=== PATIENT | female | born 2000 | race African-American/Black ===

== ENCOUNTER 2021-01-22 11:57 | Inpatient (IN) | payer SELFPAY ==
[2021-01-22 11:00] VITALS: BMI 28.8
[2021-01-22 14:00] VITALS: BP 132/90; PULSE 89; RESP 16; TEMP 36.9; O2SAT 98
[2021-01-22] MEDS: hyDROXYzine 25 mg Capsule 50 MG PO (14:36)
[2021-01-22] MEDS: nicotine 21 mg Patch 1 PATCH TRANSDERMA (14:48)
[2021-01-22] MEDS: trazodone 50 mg Tablet PO (20:55)
[2021-01-22] MEDS: nicotine 2 mg Gum BUCCAL (21:42)
[2021-01-22 22:00] VITALS: BP 132/83; PULSE 77; RESP 16; TEMP 36.8; O2SAT 98
[2021-01-23 06:00] VITALS: BP 105/65; PULSE 60; RESP 17; TEMP 36.9; O2SAT 99
[2021-01-23] MEDS: multivitamin therapeutic Tablet 1 TAB PO (09:08)
[2021-01-23] MEDS: folic acid 1 mg Tablet PO (09:08)
[2021-01-23] MEDS: thiamine 100 mg Tablet PO (09:08)
[2021-01-23] MEDS: hyDROXYzine 25 mg Capsule 50 MG PO ×2 (09:10→20:57)
[2021-01-23] MEDS: nicotine 2 mg Gum BUCCAL ×4 (09:10→20:53)
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
[2021-01-23 14:00] VITALS: BP 103/57; PULSE 70; RESP 17; TEMP 36.4; O2SAT 100
[2021-01-23] MEDS: sertraline 50 mg Tablet PO (15:11)
[2021-01-23] MEDS: BuSPIRONE 10 mg Tablet 15 MG PO (17:07)
[2021-01-23] MEDS: trazodone 50 mg Tablet PO (21:51)
[2021-01-23 22:00] VITALS: BP 127/76; PULSE 88; RESP 17; TEMP 37; O2SAT 98
[2021-01-24 06:00] VITALS: BP 119/66; PULSE 78; RESP 15; TEMP 36.8; O2SAT 100
[2021-01-24] MEDS: nicotine 2 mg Gum BUCCAL ×3 (07:38→16:49)
[2021-01-24] MEDS: BuSPIRONE 10 mg Tablet 15 MG PO ×2 (08:31→21:01)
[2021-01-24] MEDS: thiamine 100 mg Tablet PO (08:32)
[2021-01-24] MEDS: multivitamin therapeutic Tablet 1 TAB PO (08:32)
[2021-01-24] MEDS: sertraline 50 mg Tablet PO (08:32)
[2021-01-24 14:00] VITALS: BP 139/67; PULSE 90; RESP 16; TEMP 36.7; O2SAT 98
--- NOTE | 2021-01-24 15:12 | PM.NPN ---
Subjective NPU Subjective: Interval history: Patient presents today reporting that she feels the medication is doing better. She continues to have some feelings of being slighted. She was seen shortly after to but was concerned about being the last person again. Identified that she was nowhere close to last person but understood her frustration and those feelings that she is having. We discussed focusing on her treatment and making sure we have a effective medications in place for her to deal with the challenges when she discharges. She reports that she is sleeping a little better. She turned her attention to how soon she might be going home and we discussed the Dr. Hamm would evaluate for that possibility tomorrow. Mental Status Exam MSE Comments: This is an overweight -Togolese female, in hospital scrubs, with adequate grooming and eye contact. No abnormal movements. Cooperative with exam in no acute distress. Speech was decreased rate and volume. Mood described as a little better; affect less subdued. Thought process, organized. Thought content: patient denied any suicidal or homicidal ideation, there were no delusions reported or noted, she denied any auditory or visual hallucinations. Attention, concentration, and memory appear intact but none were formally tested. She is alert and oriented times three. Insight and judgment appear fair. Impulse control is limited. Vitals/I&O/Wt Last Vital Signs Temp 98.7 F 01/24/21 20:19 Pulse 70 01/24/21 20:19 Resp 19 H 01/24/21 20:19 BP 141/84 01/24/21 20:19 Pulse Ox 100 01/24/21 20:19 A&P Additional A&P Information (1) Parent-child relational problem: (2) Anxiety: (3) Major depressive disorder, recurrent: (4) Cannabis abuse: Additional A&P Information This is a 20-year-old -Togolese female with a history of trauma and some cannabis use with anxiety and depression off of medication for some time on a 96-hour hold open to restarting medication. 1. Continue current medication. 2. Continue every 15 minute checks for safety. 3. Encourage individual, group and milieu therapies. 4. Encourage sober living treatment after discharge at the highest level of care to which he is willing to commit. Involuntary Hold Information 96 Hour Hold: 96 Hour Involuntary Admission: Yes 96 Hour Hold Ending Date: 01/26/21 96 Hour Hold Ending Time: 11:00 Attestations NPU Medical Necessity Statement*: Inpatient hospitalization is medically necessary and the clinically appropriate intervention at this time. We will monitor medications and make changes as indicated. Likely length of stay 1-3 days. Coding Level of Care Code Acute Die Developer for Trevor Gray
[2021-01-24] MEDS: hyDROXYzine 25 mg Capsule 50 MG PO (17:38)
[2021-01-24 20:19] VITALS: BP 141/84; PULSE 70; RESP 19; TEMP 37.1; O2SAT 100
[2021-01-24 21:57] LABS: Bilirubin Urine 1+ (Negative); Blood Urine Neg (Negative); Glucose Urine UA Norm (Normal); Ketones Urine 2+ (Negative); Leukocyte Esterase Urine Trace (Negative); Nitrate Urine Negative (Negative); Protein Urine Neg (Negative); Urine Appearance Hazy (CLEAR); Urine Color Yellow (Yellow); Urobilinogen Urine Norm (Negative); pH Urine 5 (5-7)
[2021-01-24 21:58] LABS: Add Urine Culture? No; Bacteria Urine TRACE /hpf; Mucus Urine 2+ /hpf; Squamous Epithelial Cell Urine 25-40 /hpf (0-5); WBC Urine 0-4 /hpf (0-5)
[2021-01-25 06:00] VITALS: BP 120/73; PULSE 89; RESP 15; TEMP 37.1; O2SAT 97
[2021-01-25] MEDS: sertraline 50 mg Tablet PO (08:16)
[2021-01-25] MEDS: BuSPIRONE 10 mg Tablet 15 MG PO (08:16)
[2021-01-25] MEDS: nitrofurantoin SR (BID) 100 mg Capsule PO (08:16)
--- NOTE | 2021-01-25 08:18 | NUR.SHIFT ---
refused scheduled Multivitamin, thiamine, folic acid
[2021-01-25] MEDS: nicotine 2 mg Gum BUCCAL (09:04)
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
[2021-01-25 10:27] VITALS: BP 120/73; PULSE 89; RESP 15; TEMP 37.1; O2SAT 97
[2021-01-25 14:00] VITALS: BP 142/76; PULSE 84; RESP 18; TEMP 36.9; O2SAT 98
== END 2021-01-25 16:40 | disposition home or self-care (01) | DRG 882 ==
PROVIDERS: Admitting Provider Psychiatry & Neurology Psychiatry; Visit Provider Psychiatry & Neurology Psychiatry
DX: F43.25 Adjustment disorder with mixed disturbance of emotions and conduct (principal); F33.9 Major depressive disorder, recurrent, unspecified; Z63.8 Other specified problems related to primary support group; Z62.820 Parent-biological child conflict; Z91.5 Personal history of self-harm; F17.210 Nicotine dependence, cigarettes, uncomplicated; F12.10 Cannabis abuse, uncomplicated; F41.1 Generalized anxiety disorder
CPT/HCPCS: 81001